=== PATIENT | female | born 1995 | race Caucasian/White ===

== ENCOUNTER 2018-12-05 12:45 | Emergency (ER) | payer SELFPAY ==
[2018-12-05 13:17] LABS: ADD MAN DIFF? NO
[2018-12-05] MEDS: SODIUM CHLORIDE 0.9% 1L BAG IV* (13:19)
[2018-12-05 13:29] LABS: ABNORMAL IP MESSAGE 1; BASOPHILS % 0.2 % (0.0-2.0); EOSINOPHILS % 0.1 % (0.0-7.0); HEMATOCRIT 34.4 % (37.0-47.0); HEMOGLOBIN 10.8 g/dl (12.0-16.0); LYMPHOCYTES # 2.3 10^3/ul (0.8-2.9); MEAN CORPUSCULAR HEMOGLOBIN 19.4 pg (29.0-33.0); MEAN CORPUSCULAR HGB CONC 31.4 g/dl (32.0-37.0); MEAN CORPUSCULAR VOLUME 61.9 fl (82.0-101.0); MEAN PLATELET VOLUME 11.2 fl (7.4-10.4); MONOCYTES % 10.7 % (0.0-11.0); NEUTROPHIL # 5.9 10^3/ul (1.6-7.5); NEUTROPHILS % 63.7 % (39.0-77.0); PLATELET COUNT 411 10^3/UL (140-415); RED BLOOD COUNT 5.56 10^6/ul (4.20-5.40); RED CELL DISTRIBUTION WIDTH 15.9 % (11.5-14.5)
[2018-12-05 13:29] LABS: WHITE BLOOD COUNT 9.2 10^3/ul (4.8-10.8)
[2018-12-05 13:30] LABS: POSITIVE DIFF @See below
[2018-12-05] MEDS: ACETAMINOPHEN 325 MG TAB PO (13:33)
[2018-12-05 13:38] LABS: ADD UMIC YES; UR ASCORBIC ACID NEGATIVE (NEGATIVE); UR BACTERIA FEW /HPF (NONE SEEN); UR BILIRUBIN (Dip) NEGATIVE (NEGATIVE); UR BLOOD (Dip) 1+ mg/dL (NEGATIVE); UR CLARITY SLIGHTLY CLOUDY (CLEAR); UR COLOR AMBER (YELLOW); UR GLUCOSE (Dip) NEGATIVE (NEGATIVE); UR KETONES (Dip) 2+ mg/dL (NEGATIVE); UR LEUKOCYTE ESTERASE (Dip) NEGATIVE Leu/ul (NEGATIVE); UR MUCUS MANY /HPF (NONE SEEN); UR NITRITE (Dip) NEGATIVE (NEGATIVE); UR RBC 2 /HPF (0-5); UR SQUAMOUS EPITHELIAL CELL FEW /HPF (FEW); UR TOTAL PROTEIN (Dip) 2+ mg/dl (NEGATIVE); UR UROBILINOGEN (Dip) 1+ mg/dL (NEGATIVE); UR WBC 2 /HPF (0-5)
[2018-12-05 13:47] LABS: ALANINE AMINOTRANSFERASE 44 IU/L (13-69); ALBUMIN 4.5 g/dl (3.3-4.9); ALBUMIN/GLOBULIN RATIO 0.95; ALKALINE PHOSPHATASE 72 IU/L (42-121); ANION GAP 14 (5-13); ASPARTATE AMINO TRANSFERASE 66 IU/L (15-46); BILIRUBIN,INDIRECT 0.2 mg/dl (0-1.1); BILIRUBIN,TOTAL 0.2 mg/dl (0.2-1.3); BLOOD UREA NITROGEN 7 mg/dl (7-20); CALCIUM 9.7 mg/dl (8.4-10.2); CARBON DIOXIDE 23 mmol/L (21-31); CHLORIDE 99 mmol/L (97-110); CREATININE 0.66 mg/dl (0.44-1.00); Estimated GFR > 60 mL/min (>60); GLUCOSE 95 mg/dl (70-220); POTASSIUM 3.5 mmol/L (3.5-5.1); SODIUM 136 mmol/L (135-144); TOTAL PROTEIN 9.2 g/dl (6.1-8.1)
[2018-12-05] MEDS: KETOROLAC 15 MG INJ IV (14:53)
== END 2018-12-05 17:39 | disposition home or self-care (01) ==
LOC: E/R 12:45
DX: J02.9 Acute pharyngitis, unspecified (principal); R00.0 Tachycardia, unspecified; D50.9 Iron deficiency anemia, unspecified
CPT/HCPCS: 36415; 71045; 80053; 81001; 83605; 84703; 85025; 87040; 87086; 87400; 87880; 93005; 96374; 99285-25